=== PATIENT | male | born 1990 | race Two or more races ===

== ENCOUNTER 2021-05-30 14:14 | Emergency (ER) | payer OTHER ==
[2021-05-30 14:26] VITALS: BP 118/71; PULSE 52; TEMP 98.2; BMI 25.8
[2021-05-30] MEDS ORDERED: IBUPROFEN 600 MG TABLET (FP) PO ONE ×2 (14:35→14:48)
== END 2021-05-30 15:20 | disposition home or self-care (01) ==
LOC: JERFT 14:14
DX: M79.672 Pain in left foot (principal)
CPT/HCPCS: 73610-TC-LT-FY; 73630-TC-LT; 99284-25